=== PATIENT | male | born 1975 | race Caucasian/White ===

== ENCOUNTER → 2018-07-24 | Outpatient (CLI) | payer OTHER ==
[~2018-07-24] VITALS: Ht 172.7 cm; Wt 98.9 kg
[~2018-07-24] MED LIST: RANI150T21 PO; SINCALIDE 2 MCG in IV NORMAL SALINE 50ML 30 ML IV ONE
--- NOTE | 2018-07-24 09:52 | RAD ---
Right upper quadrant abdominal ultrasound, 07/24/2018: HISTORY: Right upper quadrant pain The gallbladder is within normal limits in size. There is no sonographic evidence of cholelithiasis. The gallbladder wall is not thickened. The common hepatic duct is of normal caliber. The hepatic echogenicity appears generally increased, most commonly due to fatty change. No hepatic mass is evident. The pancreas was not well defined due to overlying bowel. No right renal abnormality is detected. IMPRESSION: 1. No sonographic evidence of cholelithiasis. 2. Increased hepatic echogenicity suggesting fatty change. Electronically signed by: Rob Lea MD (07/24/2018 9:49 AM) [facility]
--- NOTE | 2018-07-24 14:14 | RAD ---
Hepatobiliary Scintigraphy with Sincalide Administration Radiopharmaceutical: 5.5 mCi Tc-99m mebrofenin I.V. 2 mcg of sincalide was also given. History: Right upper quadrant pain for 6 months, epigastric pain.. Technique: Following administration of mebrofenin IV, dynamic anterior abdominal imaging was then performed for 60 minutes. Sincalide was then administered with additional dynamic anterior images obtained to assess gallbladder ejection fraction. Findings: There is prompt, uniform accumulation of the tracer by the liver. There is normal filling of the intrahepatic ducts, common bile duct, and gallbladder, and normal excretion of the tracer into the duodenum. The common bile duct is seen at 15 minutes, and the gallbladder at 20 minutes. The calculated gallbladder ejection fraction is 46.1 percent (normal is greater than 50%). The patient denied significant abdominal complaints during sincalide infusion. Impression: 1. Normal hepatic, biliary, and gallbladder uptake and excretion, with mildly abnormal gallbladder ejection fraction. Electronically signed by: Adelso Zendejas MD (07/24/2018 2:11 PM) [id number]
== END | disposition home or self-care (01) ==
LOC: US 07:38
PROVIDERS: ATTEND Internal Medicine Gastroenterology
DX: R10.11 Right upper quadrant pain (principal)
CPT/HCPCS: 76705; 78227; A9537; J2805